=== PATIENT | female | born 1995 ===

== ENCOUNTER 2019-01-30 20:29 | Emergency (ER) | payer SELFPAY ==
[2019-01-30] MEDS ORDERED: ACETAMINOPHEN 500 MG TAB PO ONE (21:31)
[2019-01-30] MEDS ORDERED: IBUPROFEN 600 MG TAB PO ONE (21:31)
--- NOTE | 2019-01-30 22:08 | XRay Report ---
Left foot 3 views INDICATION: Left foot pain and swelling. IMPRESSION: Slight lucency through the distal metaphysis of the fourth metatarsal as well as the base of the fifth metatarsal concerning for nondisplaced fracture. Recommend correlation for point tender ness in these regions. Signer Name: Alton Storey MD Signed: 01/30/2019 10:03 PM Workstation Name: [id number]
--- NOTE | 2019-01-30 22:29 | Emergency Department Report ---
ED Lower Extremity HPI - General Chief Complaint: Extremity Injury, Lower Stated Complaint: LEFT FOOT INJURY/PAIN Source: patient Mode of arrival: Ambulatory Limitations: No Limitations - History of Present Illness Initial Comments: Patient is a 23-year-old -[place] female with no past medical history who presents to the ED with complaint of acute onset persistent severe left foot pain and swelling after she tripped on the sidewalk and twisted her left foot and fell down about 6 hours ago. Patient denies head or neck injuries, back pain, dizziness, syncope, seizures, numbness and tingling or weakness of left leg or hip pain. Patient states that the pain is worse with any active range of motion or weightbearing. MD Complaint: foot injury (left foot) -: Sudden, hour(s) (6) Injury: Foot: Left (left foot pain, swelling) Type of Injury: inversion Place: street/outdoors Severity: severe Severity scale (0 -10): 8 Improves With: nothing Worsens With: weight bearing, movement, palpation Context: fall, walking, other (missed a side walk step) Associated Symptoms: snap/pop sensation, swelling, able to partially bear weight. denies: numbness, tingling, unable to bear weight - Related Data Previous Rx's Medication Instructions Recorded Last Taken Type Acetaminophen/Codeine [Tylenol 1 tab PO Q6H PRN #12 tab 01/30/19 Unknown Rx /Codeine # 3 tab] Cyclobenzaprine [Flexeril] 10 mg PO Q8H PRN #15 tablet 01/30/19 Unknown Rx Ibuprofen [Motrin] 800 mg PO Q8HR PRN #24 tablet 01/30/19 Unknown Rx Allergies Allergy/AdvReac Type Severity Reaction Status Date / Time No Known Allergies Allergy Verified 01/30/19 22:52 ED Review of Systems ROS: Stated complaint: LEFT FOOT INJURY/PAIN Other details as noted in HPI Constitutional: denies: chills, fever Eyes: denies: eye pain, eye discharge, vision change ENT: denies: ear pain, throat pain Respiratory: denies: cough, shortness of breath, wheezing Cardiovascular: denies: chest pain, palpitations Endocrine: no symptoms reported Gastrointestinal: denies: abdominal pain, nausea, diarrhea Genitourinary: denies: urgency, dysuria, discharge Musculoskeletal: joint swelling (left foot), arthralgia (left foot). denies: back pain Skin: denies: rash, lesions Neurological: denies: headache, weakness, paresthesias Psychiatric: denies: anxiety, depression Hematological/Lymphatic: denies: easy bleeding, easy bruising ED Past Medical Hx - Medications Home Medications: Home Medications Medication Instructions Recorded Confirmed Last Taken Type Acetaminophen/Codeine [Tylenol 1 tab PO Q6H PRN #12 tab 01/30/19 Unknown Rx /Codeine # 3 tab] Cyclobenzaprine [Flexeril] 10 mg PO Q8H PRN #15 tablet 01/30/19 Unknown Rx Ibuprofen [Motrin] 800 mg PO Q8HR PRN #24 tablet 01/30/19 Unknown Rx ED Physical Exam - General Limitations: No Limitations General appearance: alert, in no apparent distress - Head Head exam: Present: atraumatic, normocephalic, normal inspection - Eye Eye exam: Present: normal appearance, PERRL, EOMI Pupils: Present: normal accommodation - ENT ENT exam: Present: normal exam, normal orophraynx, mucous membranes moist, TM's normal bilaterally, normal external ear exam - Neck Neck exam: Present: normal inspection, full ROM - Respiratory Respiratory exam: Present: normal lung sounds bilaterally. Absent: respiratory distress, wheezes, rales, rhonchi, chest wall tenderness, decreased breath sounds - Cardiovascular Cardiovascular Exam: Present: regular rate, normal rhythm, normal heart sounds. Absent: systolic murmur, diastolic murmur, rubs, gallop - GI/Abdominal GI/Abdominal exam: Present: soft, normal bowel sounds. Absent: tenderness, hyperactive bowel sounds, organomegaly, mass - Extremities Exam Extremities exam: Present: normal inspection, tenderness (palpable left foot tenderness with swelling at the 5th Metatarsal area), joint swelling (right foot). Absent: full ROM (limited due to pain), normal capillary refill, pedal edema - Back Exam Back exam: Present: normal inspection, full ROM. Absent: tenderness, muscle spasm, paraspinal tenderness, vertebral tenderness - Neurological Exam Neurological exam: Present: alert, oriented X3, CN II-XII intact, normal gait, reflexes normal - Psychiatric Psychiatric exam: Present: normal affect, normal mood - Skin Skin exam: Present: warm, dry, intact, normal color. Absent: rash ED Course Vital Signs 01/30/19 01/30/19 01/30/19 20:41 21:43 21:44 Temperature 98.6 F Pulse Rate 85 Respiratory 18 16 16 Rate Blood Pressure 109/88 O2 Sat by Pulse 100 Oximetry - Reevaluation(s) Reevaluation #1: 01/30/19 23:09 This is a 23-year-old female who presented to the ED with left foot pain and swelling after she tripped and fell down on the sidewalk after twisting her left foot. In the ED, patient is alert and oriented 3 and is not in distress with normal vital signs, and appears to be in pain. Patient was treated for pain in the left foot x-ray shows a slight lucency through the distal metaphysis of the fourth metatarsal as well as the base of the fifth metatarsal concerning for nondisplaced fracture. Recommend correlation for point tenderness in these regions. On reevaluation, patient's pain is well controlled with medications, left foot was splinted with postop shoe and Fam wrap and patient discharged home on crutches and pain medications. Patient was referred to the orthopedic surgeon [employer] application consultant Dr. Ferrell for further evaluation. Patient was advised to contact Dr. Ferrell's office first thing in the morning to schedule an appointment. Patient was otherwise advised to return to the ED immediately if symptoms get worse. ED Lower Extremity MDM - Radiology Data Radiology results: report reviewed, image reviewed Findings [address] [address] XRay Report Signed Patient: FARAZ GREWAL MR#: [id number] : 1995 Acct:[id number] Age/Sex: 23 / F ADM Date: 01/30/19 Loc: ED Attending Dr: Ordering Physician: ELLE ABREU Date of Service: 01/30/19 Procedure(s): XR foot 3+V LT Accession Number(s): [id number] cc: ELLE ABREU Fluoro Time In Minutes: Left foot 3 views INDICATION: Left foot pain and swelling. IMPRESSION: Slight lucency through the distal metaphysis of the fourth metatarsal as well as the base of the fifth metatarsal concerning for nondisplaced fracture. Recommend correlation for point tenderness in these regions. Signer Name: Alton Storey MD Signed: 01/30/2019 10:03 PM Workstation Name: [id number] Transcribed By: CAITLIN Dictated By: Alton Storey MD Electronically Authenticated By: Alton Storey MD Signed Date/Time: 01/30/192202 - Medical Decision Making This is a 23-year-old female who presented to the ED with left foot pain and swelling after she tripped and fell down on the sidewalk after twisting her left foot. In the ED, patient is alert and oriented 3 and is not in distress with normal vital signs, and appears to be in pain. Patient was treated for pain in the left foot x-ray shows a slight lucency through the distal metaphysis of the fourth metatarsal as well as the base of the fifth metatarsal concerning for nondisplaced fracture. Recommend correlation for point tenderness in these regions. On reevaluation, patient's pain is well controlled with medications, left foot was splinted with postop shoe and Fam wrap and patient discharged home on crutches and pain medications. Patient was referred to the orthopedic surgeon [employer] application consultant Dr. Ferrell for further evaluation. Patient was advised to contact Dr. Ferrell's office first thing in the morning to schedule an ap pointment. Patient was otherwise advised to return to the ED immediately if symptoms get worse. - Differential Diagnosis left foot fracture; left foot sprain; muscle strain Critical care attestation.: If time is entered above; I have spent that time in minutes in the direct care of this critically ill patient, excluding procedure time. ED Disposition Clinical Impression: Fracture of left foot Qualifiers: Encounter type: initial encounter Fracture type: closed Qualified Code(s): S92.902A - Unspecified fracture of left foot, initial encounter for closed fracture Closed nondisplaced fracture of fifth left metatarsal bone Qualifiers: Encounter type: initial encounter Qualified Code(s): S92.355A - Nondisplaced fracture of fifth metatarsal bone, left foot, initial encounter for closed fracture Disposition: DC-01 TO HOME OR SELFCARE Is pt being admited?: No Does the pt Need Aspirin: No Condition: Stable Instructions: Foot Fracture in Adults (ED), Foot Sprain (ED) Additional Instructions: Take medication with food, drink plenty of fluids and follow-up with the orthopedic surgeon oracle application consultant Dr. Ferrell in 2-3 days, or your primary care physician in 7-10 days for reevaluation. Contact Dr. Ferrell's office first thing in the morning to schedule an appointment for follow-up. Prescriptions: Cyclobenzaprine [Flexeril] 10 mg PO Q8H PRN #15 tablet PRN Reason: Muscle Spasm Ibuprofen [Motrin] 800 mg PO Q8HR PRN #24 tablet PRN Reason: Pain , Severe (7-10) Acetaminophen/Codeine [Tylenol /Codeine # 3 tab] 1 tab PO Q6H PRN #12 tab PRN Reason: Pain , Severe (7-10) Referrals: PRIMARY CAREMD [Primary Care Provider] - 3-5 Days DIONNE FERRELL MD [Staff Physician] - 3-5 Days Forms: Work/School Release Form(ED) Time of Disposition: 22:28 Print Language: ALBANIAN
[2019-01-30 22:54] VITALS: BP 109/88
== END 2019-01-30 23:08 | disposition home or self-care (01) ==
LOC: ED 20:29
DX: S92.902A Unspecified fracture of left foot, initial encounter for closed fracture (principal); S92.355A Nondisplaced fracture of fifth metatarsal bone, left foot, initial encounter for closed fracture; Z79.1 Long term (current) use of non-steroidal anti-inflammatories (NSAID); Z79.899 Other long term (current) drug therapy; W01.118A Fall on same level from slipping, tripping and stumbling with subsequent striking against other sharp object, initial encounter; Y93.89 Activity, other specified; Y92.89 Other specified places as the place of occurrence of the external cause; Y99.8 Other external cause status